=== PATIENT | female | born 1980 | race Caucasian/White ===

== ENCOUNTER → 2016-10-16 | Outpatient (CLI) | payer SELFPAY ==
[2016-10-16 13:43] LABS: BASOPHILS % (AUTO) 0 % (0-2); EOSINOPHILS % (AUTO) 0 % (0-4); LYMPHOCYTES # (AUTO) 1.9 X10^3; MEAN CORPUSCULAR HEMOGLOBIN 30.4 PG (26.0-34.0); MEAN CORPUSCULAR HGB CONC 33.7 g/dL (31.0-37.0); MEAN CORPUSCULAR VOLUME 90 FL (80-100); MEAN PLATELET VOLUME 10.5 FL (6.0-9.5); MONOCYTES # (AUTO) 0.6 X10^3; MONOCYTES % (AUTO) 7 % (3-11); NEUTROPHILS # (AUTO) 5.5 X10^3; NEUTROPHILS % (AUTO) 68 % (51-67); PLATELET COUNT 291 10^3uL (150-450); WHITE BLOOD COUNT 8.07 10^3uL (4.0-11.0)
--- NOTE | 2016-10-16 14:06 | Diagnostic Imaging Report ---
INDICATION: Pleuritic chest pain. Pain, left side. FINDINGS: There is rather severe obstructive pulmonary disease bilaterally. No infiltrates are present. No masses are identified. No hilar adenopathy. Heart is not enlarged. No evidence of pneumothorax or pleural effusion. No rib fractures or destructive bony lesions noted. IMPRESSION: 1. Rather severe bilateral obstructive pulmonary disease. 2. No acute infiltrates or masses demonstrated. Dictated by: Dictated on workstation # [id number]
== END ==
LOC: EDUNIT# 13:25 → RAD 13:25
PROVIDERS: ATTEND Internal Medicine
DX: R07.81 Pleurodynia (principal); R06.00 Dyspnea, unspecified; R05 Cough; J44.9 Chronic obstructive pulmonary disease, unspecified
CPT/HCPCS: 36415; 71020; 85025; 85379; 86140